=== PATIENT | male | born 1935 | race Caucasian/White ===

== ENCOUNTER 2019-07-19 13:01 | Inpatient (IN) | payer MEDICARE ==
--- NOTE | 2019-07-19 14:46 | PDOC.FPRHP ---
- History of Present Illness Chief Complaint: Chest PainPt i History of Present Illness: Pt is an 83 yo male with pmh significant for DM, HTN, HLD, hx of 3 vessel CABG in [address] Wei who presented to [facility] with chest pain starting at 0300. Pt described it as indigestion not alleviated with maalox. Pt states he has pain radiating down L arm. He denies diaphoresis. This feels the same as his cardiac pain when he had the bypass in 2002. He follows with Dr. Wei but is unsure the last time he had any cardiac workup performed. Pt noted shortness of breath with exertion over a few months. He is a non-smoker. He does not know his full PMH or medications. His is bringing a list. In [place] Dr. Wei was notified who started the pt on therapeutic lovenox. Troponin neg x 1. EKG showed RBBB, mild ST depressions in V4/V5. Pt was given nitro-paste. Of note pt was seen by ENT requiring intervention to alleviate epistaxis. - Allergies/Adverse Reactions Allergies Allergy/AdvReac Type Severity Reaction Status Date / Time No Known Allergies Allergy Unverified 07/19/19 16:40 - Home Medications Medication Instructions Recorded Confirmed Type Allopurinol [Zyloprim] 150 mg PO DAILY 07/19/19 07/19/19 History Amlodipine [Norvasc] 1 tab PO DAILY 07/19/19 07/19/19 History Aspirin [Ecotrin Low Strength] 1 tab PO DAILY 07/19/19 07/19/19 History Pitavastatin Calcium [Livalo] 2 mg PO MWF 07/19/19 07/19/19 History hydrALAZINE HCl [Hydralazine HCl] 50 mg PO TID 07/19/19 07/19/19 History metFORMIN [Glucophage] 1 tab PO DAILY 07/19/19 07/19/19 History - History PMHx: CAD s/p 3v CABG, HTN, HLD, DM2, gout PSHx: CABG, R shoulder, L knee, nasal surgery FHx: non-contributory Social: 1 glass wine/night, no smoking, no drugs - Review of Systems General: denies: fever/chills, weight/appetite/sleep changes, night sweats Eyes: denies: eye pain, vision changes ENT: denies: nasal congestion, rhinorrhea Respiratory: reports: shortness of breath. denies: cough, congestion Cardiovascular: reports: chest pain. denies: palpitation, edema Gastrointestinal: reports: nausea. denies: vomiting, diarrhea, constipation Genitourinary: denies: incontinence, dysuria Skin: denies: rashes, jaundice Musculoskeletal: denies: pain, tenderness Neurological: denies: numbness, syncope, seizure Psychological: denies: anxiety, depression - Vital signs BP: 142/79, MAP: 100, Pulse: 83, Resp: 21, Pain: 8, O2 sat: 99 on (Room Air), Time: 07/19/2019 13:16. weight 72kg - Physical Exam Constitutional: NAD, awake, alert and oriented HEENT: PERRLA, EOMI Neck: trachea midline, no JVD Heart: RRR, pulses present, no edema -Heart: Systolic murmur, 3/6, best heard over R sternal border Lungs: CTAB, no respiratory distress, no wheezing Abdomen: soft, non-tender, bowel sounds present Musculoskeletal: normal structure, normal tone Neurological: no focal deficit, CN II-XII intact Skin: no rash/lesions, capillary refill <2 seconds Heme/Lymphatic: no purpura, no petechia Psychiatric: normal mood and affect, good judgment and insight FMR H&P: Results - Labs Result Diagrams: 07/20/19 04:13 07/20/19 04:13 - EKG Interpretation EKG: EKG revealed NSR, RBBB, ST depression in V4/5 - Radiology Interpretation Chest x-ray Status: report reviewed by me Additional comment: Cardiomegaly, no congestion or overload FMR H&P: A/P - Problem List (1) Hyponatremia Current Visit: Yes Status: Acute Code(s): E87.1 - HYPO-OSMOLALITY AND HYPONATREMIA (2) CAD (coronary artery disease) Current Visit: Yes Status: Acute Code(s): I25.10 - ATHSCL HEART DISEASE OF [place] CORONARY ARTERY W/O ANG PCTRS (3) Unstable angina Current Visit: Yes Status: Acute (4) Hx of CABG Current Visit: Yes Status: Acute (5) HTN (hypertension) Current Visit: Yes Status: Acute Code(s): I10 - ESSENTIAL (PRIMARY) HYPERTENSION (6) Diabetes mellitus Current Visit: Yes Status: Acute Code(s): E11.9 - TYPE 2 DIABETES MELLITUS WITHOUT COMPLICATIONS - Plan Pt is an 83 yo male here for unstable angina: # Unstable Angina - Dr. Wei consulted, appreciate recs; Cath tomorrow, continue therapeutic lovenox - trend trops - Risk stratify: lipid, a1c, tsh - NPO midnight # Hyponatremia - monitor, possibly secondary to dehydration, diet - pending urin sodium, urine and sodium osmolarity # Epistaxis - monitor H/H, potato starch given to alleviate bleeding, consider nose rocket if not alleviated # Normocytic Anemia - monitor, likely secondary to epistaxis, chronic disease, possible malnutrition - pending workup based on 's records # Systolic Murmur - unsure if new onset, consider echo # CKD with possible acute injury - monitor in am, received fluids in ED so will hopefully correct # HTN/HLD/DM - will continue home meds when bring list - hyperglycemia protocol initiated # Pt will need med reconciliation Diet: HH, NPO midnight Fluids: SL VTE: lovenox Code: Full Dispo: admit to tele obs for cath tomorrow with Dr. Wei FMR H&P: Upper Level - Plan Date/Time: 07/19/19 1445 I, Ari Luz PGY2, have evaluated this patient and agree with findings/ plan as outlined by lab intern resident. Pertinent changes/additions are listed here. Chest Pain 2/2 MSK vs. ACS A- Pain concerning for ACS especially considering high risk pt with hx of CAD s/ p CABG. However initial trops .028-->.025, EKG significant for R BBB, CXR shows cardiomegaly. Cardiology (Dr. Wei) has been consulted from ED and given pt dose of lovenox P- admit tele obs -will give ASA -has nitro paste -O2 prn -tend trops -risk stratify with FLP -possible stress test tomorrow -f/u cards recs Nose bleed A- pt had recent cauterization, recieved th lovenox in ED. P- will give rhinorocket and consider ENT consult if not controlled. Otherwise plan for outpt f/u if no resolution. Hyponatremia A- on admission Na 128, pt asymptomatic and stable. Possibly 2/2 being volume down. He is s/p 1L IVF P- will monitor and consider further workup Hx of SOB on exertion A- considering cardiac hx he may have some component of CHF, he cannot remember when his last ECHO was or what it said. [facility] P- f/u with cardiology, he has likely had recent ECHO Systolic murmur A- pt seemingly asymptomatic P- per plan for SOB on exertion Normocytic anemia A- Hgb 9.9 on outside facility. could be chronic, pts is coming up to provide more medical hx P- will hold off on further workup and monitor for now MARK vs. CKD A- unknown baseline, On admission Cr is 1.5. Possibly pt is volume down. He is now s/p 1L IVF from ER P- will monitor and get more medical Hx from . DM2, CAD, HLD, HTN, gout -stable continue home meds (once reconcilled), accuchecs and SSI All other chronic conditions are to be managed per lab intern note Addendum - Attending - Attending Attestation Date/Time: 07/19/19 1600 I personally evaluated the patient and discussed the management with Dr. Rojas /Natty. I agree with the History, Examination, Assessment and Plan documented above with any addition or exceptions noted below.
[2019-07-19] MEDS ORDERED: Ondansetron PF 4 MG/2 ML Vial IVP PRN (16:40)
[2019-07-19] MEDS ORDERED: Ondansetron ODT 4 MG TAB SL PRN (16:40)
[2019-07-19] MEDS ORDERED: HumaLOG 300 UNITS/3 ML VIAL SC PRN (16:53)
[2019-07-19] MEDS ORDERED: Dextrose 5% in Water 1,000 ML IV PRN (16:53)
[2019-07-19] MEDS ORDERED: Insulin Regular 300 UNITS/3 ML VIAL SC PRN (16:53)
[2019-07-19] MEDS ORDERED: Dextrose 50% Abboject 50 ML SYRINGE SLOW IVP PRN (16:53)
[2019-07-19 17:34] LABS: Hemoglobin A1c 5.5 % (4.0-6.0)
[2019-07-19 17:47] VITALS: BMI 25.8
[2019-07-19] MEDS ORDERED: Aspirin 81 mg Enteric Coated Tablet PO SCH (18:00)
[2019-07-19] MEDS ORDERED: Communication Order-Pharmacy FS SCH (18:30)
--- NOTE | 2019-07-19 19:37 | PDOC.EVN ---
Event Note - Event Note Event Note: At approximately 1900, the Resident Night Team was notified that the patient was having ongoing epistaxis from both nares that did not respond adequately to position changes or applied pressure. Upon evaluation, the patient appeared to be in no acute distress other than continual oozing from the right nare and occasional hemoptysis, likely secondary to postnasal drainage. Vital signs were reviewed and hemodynamic compromise did not appear imminent. A large clot was removed from the right nare, and a Rhino Rocket was subsequently inserted and inflated to achieve tamponade effect. Insertion of a second Rhino Rocket was attempted but could not completed due to poor patient tolerance. No continuous bleeding could be appreciated. A fresh emesis bag was provided and the patient was allowed to recover for approximately 30M. Upon reinspection, the patient's epistaxis appeared to be minimal, but minimal yet ongoing hemoptysis and collected blood in the fresh emesis bag indicated that appropriate tamponade effect had not yet been achieved. As such, a second Rhino Rocket was inserted into the patient's left nare and gradually inflated. The patient tolerated the procedure well and no complications were evident.
--- NOTE | 2019-07-19 19:59 | CON ---
DATE OF CONSULTATION: 07/19/2019 REASON FOR CONSULTATION: Unstable angina. HISTORY OF PRESENT ILLNESS: Mr. Blood is an 83-year-old gentleman. The patient has a history of coronary artery bypass grafting done many years ago, that will be outlined below. He also has previously known mild aortic stenosis. The patient was doing well up until this morning. He started having severe substernal chest pain. He went to the emergency room. EKG continued to show right bundle-branch block as before. He was given a dose of Lovenox. The patient had resolution of chest pain, but unfortunately he has developed nosebleeds. The patient states that about 2 weeks ago he had to go off the aspirin for 3 to 4 days due to severe nose bleeding. He had a vessel cauterized, but he said he is only off the aspirin he has had 3 to 4 days. Unfortunately, he is having severe recurrent nosebleeds now. PAST MEDICAL HISTORY: The patient presented with severe chest pain in March 2002, 17 years ago. He found to have severe LAD diagonal disease with a 95% LAD stenosis with calcium, 99% stenosis in first marginal branch, 10% to 15% plaques in the right coronary artery, ejection fraction of 60%. The patient underwent bypass surgery by With internal mammary to the LAD, saphenous vein graft to the obtuse marginal, left radial artery to the diagonal. He did well postoperatively. The patient has been seen in our office most recently in September of 2018, doing well at that time. The patient did have an echocardiogram done in 2018 showing only mild aortic stenosis. The dated of an echocardiogram I believe was in March 2017. The patient on admission has been doing well up until recently. MEDICATIONS: 1. Aspirin. He said he just started back on it yesterday, that is what he told the emergency room doctor, but he tells me that he is only off it for few days, so it is not really clear how long he is off the aspirin. 2. Metformin. 3. Amlodipine. 4. Livalo. 5. Hydralazine. 6. Allopurinol. SOCIAL HISTORY: No alcohol or tobacco. REVIEW OF SYSTEMS: CONSTITUTIONAL: No significant weight gain or loss. VISION: No changes. HEARING: No changes. PULMONARY: Some shortness of breath. CARDIAC: Positive for chest pain, substernal. SKIN: No rashes. NEUROLOGIC: No unilateral weakness or numbness. PSYCHIATRIC: No unusual depression or anxiety. PHYSICAL EXAMINATION: GENERAL: This is a somewhat uncomfortable-appearing 83-year-old gentleman, who is continuing to have nosebleeds. He is currently pinching his nostril to try to reduce the nose bleeding. VITAL SIGNS: Blood pressure 132/88 and pulse 94, regular. LUNGS: Clear. CARDIAC: Normal S1. Normal S2. There is a 3/6 crescendo-decrescendo murmur heard in the right upper sternal border and also left sternal border. No diastolic murmur. No S3. ABDOMEN: Soft and nontender. EXTREMITIES: No clubbing, cyanosis, or edema. He has good femoral pulse on the left and palpable in the right. Good popliteal on the left, palpable on the right. LABORATORY DATA: Troponin level 0.03. Hemoglobin was mildly diminished in [place]. Creatinine is 1.5. The estimated GFR is 44. IMAGING STUDIES: EKG shows right bundle-branch block as before. ASSESSMENT: 1. Status post bypass surgery in 2002 x3 as outlined above. 2. Right bundle-branch block, chronic. 3. Aortic stenosis. The murmur sounds more severe now. 4. Continued nosebleeds unfortunately. 5. Stage 3 renal failure. PLAN: 1. Received one dose of Lovenox. Cannot give further Lovenox with nose bleeding. 2. I would like to repeat echocardiogram. 3. Proceed the cardiac catheterization tomorrow. Discussed risk of stroke, heart attack, iodine allergy, loss of blood supply to leg or kidney, stent thrombosis, stent restenosis. This is obviously is a difficult situation. If we have put a stent, we have to use dual anti-platelet drugs for least a month and reoperative therapy at age 83 is certainly high risk. Prognosis is guarded in this gentleman. Further care dictated by hospital course. 4. Stage 3 renal failure and right bundle-branch block. We will not do left ventriculogram in view of the right bundle-branch block. Job ID: [id number] [facility]
[2019-07-19 20:21] LABS: Troponin I 0.022 ng/mL (< 0.028)
[2019-07-19] MEDS ORDERED: hydrALAZINE 25 MG TAB PO SCH (21:00)
[2019-07-19 22:19] LABS: Hemoglobin 8.8 g/dL (14.0-18.0)
[2019-07-19] MEDS: Nitroglycerin 2% Ointment 1 INCH/1 GM Packet TOP SCH (23:08)
[2019-07-19] MEDS: hydrALAZINE 25 MG TAB PO SCH (23:08)
[2019-07-20] MEDS: Nitroglycerin 2% Ointment 1 INCH/1 GM Packet TOP SCH ×3 (02:12→17:07)
[2019-07-20 04:42] LABS: #Lymphocytes 0.9 thou/uL (1.20-3.40); #Monocytes 1.1 thou/uL (0.11-0.59); #Neutrophils 7.4 thou/uL (1.40-6.50); %Eosinophils 0.3 % (0.0-10.0); %Lymphocytes 9.1 % (21.0-51.0); %Monocytes 11.7 % (0.0-10.0); %Neutrophils 78.8 % (42.0-75.0); Hemoglobin 7.5 g/dL (14.0-18.0); Mean Corpuscular HGB CONC 32.3 g/dL (32.0-36.0); Mean Corpuscular Hemoglobin 28.6 pg (27.0-31.0); Mean Corpuscular Volume 88.4 fL (78.0-98.0); Mean Platelet Volume 6.5 fL (7.4-10.4); Platelet Count 282 thou/uL (130-400); RBC Distribution Width 13.7 % (11.5-14.5); Red Blood Cell (RBC) Count 2.63 mill/uL (4.70-6.10); White Blood Cell (WBC) Count 9.4 thou/uL (4.8-10.8)
[2019-07-20 05:03] LABS: Anion Gap 13 mmol/L (10-20); BUN (Urea Nitrogen) 35 mg/dL (8.4-25.7); Calc. Creatinine Clearance 33 mL/min (70-130); Calcium 8.5 mg/dL (7.8-10.44); Carbon Dioxide 24 mmol/L (23-31); Cardiac Risk 1.9 (Less than 4.5); Chloride 97 mmol/L (98-107); Cholesterol 110 mg/dl (< 200 Desired); Estimated GFR-MDRD 39; Glucose 111 mg/dL (83-110); HDL Cholesterol 57 mg/dL (>60 Neg Risk); LDL Cholesterol, Calculated 45 mg/dL; Potassium 4.3 mmol/L (3.5-5.1); Sodium 130 mmol/L (136-145); Triglycerides 42 mg/dL (Less than 150)
[2019-07-20] MEDS ORDERED: Sodium Chloride 0.9% 1,000 ML IV SCH (06:00)
[2019-07-20] MEDS: hydrALAZINE 25 MG TAB PO SCH ×3 (07:35→20:03)
[2019-07-20] MEDS: Amlodipine 10 MG TAB PO SCH (07:35)
[2019-07-20] MEDS: Aspirin 81 mg Enteric Coated Tablet PO SCH (07:35)
--- NOTE | 2019-07-20 07:56 | RAD ---
PORTABLE CHEST HISTORY: CHF. COMPARISON: Exam from 2002. Cardiomegaly with postop sternotomy change. Poor inspiration; however, the lungs appear well aerated and clear. No significant vascular congestion. No evidence of edema. No significant effusion. IMPRESSION: Cardiomegaly. No evidence of significant congestive change. POS: AGW
--- NOTE | 2019-07-20 08:16 | PDOC.FM ---
- Subjective Subjective: Pt doing well, no more nosebleeding since rhinorocket placement, no cp , no palpitations. - Objective Vital Signs & Weight: Vital Signs (12 hours) Temp Pulse Resp BP Pulse Ox 07/20/19 07:08 97.7 F 77 16 184/84 H 94 L 07/20/19 03:47 98.8 F 84 18 162/77 H 95 07/19/19 23:58 97.9 F 86 18 152/75 H 94 L Weight Weight 72.631 kg I&O: 07/19/19 07/20/19 07/21/19 06:59 06:59 06:59 Intake Total 490 Balance 490 Result Diagrams: 07/20/19 04:13 07/20/19 04:13 Phys Exam - Physical Examination Constitutional: NAD HEENT: moist MMs, sclera anicteric Neck: supple, full ROM Respiratory: no wheezing, clear to auscultation bilateral Cardiovascular: RRR systolic murmur Gastrointestinal: soft, non-tender Musculoskeletal: no edema, pulses present Neurological: non-focal, normal sensation Psychiatric: normal affect, A&O x 3 Skin: no rash, normal turgor Dx/Plan (1) Unstable angina Status: Acute (2) CAD (coronary artery disease) Code(s): I25.10 - ATHSCL HEART DISEASE OF [place] CORONARY ARTERY W/O ANG PCTRS Status: Acute (3) Diabetes mellitus Code(s): E11.9 - TYPE 2 DIABETES MELLITUS WITHOUT COMPLICATIONS Status: Acute (4) HTN (hypertension) Code(s): I10 - ESSENTIAL (PRIMARY) HYPERTENSION Status: Acute (5) Hx of CABG Status: Acute (6) Hyponatremia Code(s): E87.1 - HYPO-OSMOLALITY AND HYPONATREMIA Status: Acute - Plan Plan: Unstable Angina A- stable, pt currently asymptomatic. trops .028-->.022, EKG significant for R BBB, CXR shows cardiomegaly. Cardiology (Dr. Wei) has been consulted from ED and given pt dose of lovenox. Plans for cath this AM. P- cath this AM -ASA -f/u cards recs Epistaxis A- stable, pt has bilateral rhinorockets placed 07/18, has hx of cauterization by ENT. P- will consider pulling her vs. outpt Hyponatremia A- on admission Na 128-> 130 after 1L NS. Urine studies suggest renal losses vs. SIADH depending on pts volume status. I suspect hypovolemic hyponatremia P- will monitor and consider further workup Hx of SOB on exertion A- considering cardiac hx he may have some component of CHF, he cannot remember when his last ECHO was or what it said. BNP at [facility] facility was in 160s P- f/u with cardiology, he has likely had recent ECHO Systolic murmur A- pt seemingly asymptomatic P- per plan for SOB on exertion Normocytic anemia A- Hgb 9.9 on outside facility. could be chronic, pts is coming up to provide more medical hx P- will hold off on further workup and monitor for now MARK vs. CKD A- unknown baseline, On admission Cr is 1.5. Possibly pt is volume down. He is now s/p 1L IVF from ER P- will monitor and get more medical Hx from . DM2, CAD, HLD, HTN, gout -stable continue home meds, accuchecs and SSI CODE: full Addendum - Attending - Attending Attestation Date/Time: 07/20/19 3865 I personally evaluated the patient and discussed the management with Dr. Luz. I agree with the History, Examination, Assessment and Plan documented above with any addition or exceptions noted below. Patient stable. Here for concern for ACS, cardiology plans for cath tomorrow. Can't use full anticoagulation at this time due to severe epistaxis. Rhino rockets in place, consulted ENT for assistance. Continue standard ACS treatment.
[2019-07-20] MEDS ORDERED: Aspirin 81 mg Enteric Coated Tablet PO SCH (09:00)
[2019-07-20] MEDS ORDERED: metFORMIN 500 MG TAB PO SCH ×2 (09:00)
--- NOTE | 2019-07-20 10:03 | PRG ---
DATE OF SERVICE: 07/20/2019 SUBJECTIVE: Mr. Blood had a difficult evening last night with severe nose bleeding. Please see the family practice note concerning the situation where he had to have the Rhino Rocket placed in each nostril but he had a lot of bleeding and even had some hemoptysis due to the nosebleeds. He is feeling better today. He is not having chest pain fortunately. OBJECTIVE: VITAL SIGNS: His blood pressure is elevated at 184/84, pulse 77 and is regular. LUNGS: He has some expiratory wheezing. CARDIAC: Normal S1, normal S2. He has a crescendo-decrescendo murmur of aortic stenosis. ABDOMEN: Soft, nontender. EXTREMITIES: Palpable femoral pulses bilaterally. I do not feel pedal pulses on either side indicating his peripheral vascular disease. LABORATORY DATA: Of note, his creatinine did increase from 1.5 to 1.68. In addition, his hemoglobin dropped from 32.6 in [place] down to 23.2. Echocardiogram revealed normal left ventricular function, but he has moderate to severe aortic stenosis. ASSESSMENT: 1. Previous coronary artery bypass grafting for severe coronary artery disease as outlined previously that was done in 2002. Internal mammary to the LAD, vein graft to obtuse marginal, left radial to the diagonal. 2. Aortic stenosis, moderate to severe. 3. Renal failure stage 3. 4. Mild expiratory wheezing, probably some diastolic heart failure. 5. Anemia, severe. Hemoglobin dropped to 23.2. PLAN: 1. Cancel catheterization for today especially in view of continued nose bleeding. If he needs a stent, we will have to give him dual anti-platelet therapy and anticoagulate for at least a few hours during or after the procedure. 2. He has peripheral vascular disease, which increases risk. 3. Renal failure, increases rest. 4. Anemia. 5. Aortic stenosis. In other words, the patient is high risk regardless of our therapy. We will try to proceed cautiously, cancel catheterization for today. We will recheck the blood counts this afternoon. Tentatively plan for catheterization tomorrow. He understands risk of bleeding, infection, stent thrombosis, stent restenosis, renal failure. The patient is high risk regardless of therapy. We will proceed tomorrow if the patient is stable. Prognosis, guarded. We will also discuss this with his over the phone. Due to the COVID crisis, family members are not currently allowed in the room. Job ID: [id number]
[2019-07-20] MEDS: Allopurinol 300 MG TAB PO SCH (10:06)
--- NOTE | 2019-07-20 15:38 | CON ---
DATE OF CONSULTATION: CHIEF COMPLAINT: Significant epistaxis requiring nasal packing. HISTORY OF PRESENT ILLNESS: An 83-year-old male patient presenting to the hospital, status post admission, the patient had epistaxis via bilateral nares, which was significant. The patient also has a significant cardiac history including aortic stenosis, previous coronary artery bypass grafting for severe coronary artery disease that was previously done in 2002, and renal failure stage 3 with mild expiratory wheezing, likely due to diastolic heart failure and anemia. Currently, the patient's hemoglobin is 7.5. The patient has been taking aspirin at home and also has elevated blood pressure. PAST MEDICAL HISTORY: Aortic stenosis, coronary artery disease, renal failure, anemia, and hypertension. PAST SURGICAL HISTORY: Previous coronary artery bypass grafting in 2002. No other previous head and neck surgeries. SOCIAL AND FAMILY HISTORY: Lives at home. No known drug or alcohol use. Currently, not a smoker. Lives with . REVIEW OF SYSTEMS: Negative except as listed in HPI. PHYSICAL EXAMINATION: GENERAL: The patient is alert and oriented x3. HEAD AND FACE: Normocephalic, atraumatic. No skin or scalp lesions. No parotid gland or maxillary gland tenderness. EYES: Pupils are equally round and reactive to light. Extraocular movements are intact. No nystagmus on lateral gaze. EARS: Bilateral pinnae are intact with no trauma, bleeding, or infection. The EACs are clear. There is no impacted wax or drainage and no inflammation. NOSE: Bilateral nares are packed with epistaxis with a soft air-filled balloon on the side bilaterally that are taped to the maxillary soft tissue. ORAL CAVITY AND OROPHARYNX: Teeth, lips, and tongue are intact without signs of infection or inflammation. Tongue is mobile and soft. Floor of mouth is soft. The palate elevates symmetrically without significant signs of edema or erythema. NECK: Trachea is midline. No lymphadenopathy. Thyroid is normal to palpation. No masses or lesions. LUNGS: Symmetrical chest excursion and no significant wheezing or upper airway or lower airway sounds. ASSESSMENT AND PLAN: An 83-year-old male patient with coronary artery disease and currently unstable angina. I have discussed with Dr. Wei. The patient will likely need to have a catheterization and likely a stent placed in the future, which would require anticoagulation and antiplatelet treatment and given previous cardiac risk, we will likely need to stay on that anticoagulation for some time. The patient also is significantly anemic and has a history of anemia as well. Currently, hemoglobin is 7.5, and as the patient recently had a significant nosebleed, and nasal packing was just placed, I would recommend waiting at least 5 days until packing was removed in order to allow the mucosa and blood vessels in the nasal cavity to heal and to form a mature clot and start to re-mucosalize before removing. Given that the packing would be in place, I would recommend patient take amoxicillin while the packing is in place to provide gram-positive coverage and to prevent sinus infection or possibly staphylococcal scalded skin syndrome, and the patient can follow up in my clinic. The patient can have packing removed by myself in clinic and the telephone number for patient to make an appointment is #[phone]. Job ID: [id number]
[2019-07-20] MEDS: Atorvastatin Calcium 40 MG TAB PO SCH (20:03)
[2019-07-21] MEDS: Nitroglycerin 2% Ointment 1 INCH/1 GM Packet TOP SCH ×2 (03:02→10:26)
[2019-07-21 04:19] LABS: #Eosinphils 0.2 thou/uL (0.0-0.7); #Monocytes 0.9 thou/uL (0.11-0.59); #Neutrophils 7.6 thou/uL (1.40-6.50); %Basophils 0.1 % (0.0-1.0); %Eosinophils 1.8 % (0.0-10.0); %Lymphocytes 10.4 % (21.0-51.0); %Monocytes 8.8 % (0.0-10.0); %Neutrophils 78.8 % (42.0-75.0); Hemoglobin 7.2 g/dL (14.0-18.0); Mean Corpuscular HGB CONC 31.5 g/dL (32.0-36.0); Mean Corpuscular Hemoglobin 27.6 pg (27.0-31.0); Mean Corpuscular Volume 87.8 fL (78.0-98.0); Platelet Count 262 thou/uL (130-400); RBC Distribution Width 13.5 % (11.5-14.5); White Blood Cell (WBC) Count 9.7 thou/uL (4.8-10.8)
[2019-07-21 04:49] LABS: Anion Gap 12 mmol/L (10-20); BUN (Urea Nitrogen) 33 mg/dL (8.4-25.7); Calc. Creatinine Clearance 39 mL/min (70-130); Calcium 8.6 mg/dL (7.8-10.44); Carbon Dioxide 23 mmol/L (23-31); Chloride 98 mmol/L (98-107); Estimated GFR-MDRD 47; Glucose 111 mg/dL (83-110); Potassium 3.7 mmol/L (3.5-5.1); Sodium 129 mmol/L (136-145)
[2019-07-21] MEDS: Amlodipine 10 MG TAB PO SCH (05:28)
[2019-07-21] MEDS: hydrALAZINE 25 MG TAB PO SCH ×3 (05:28→21:00)
[2019-07-21] MEDS: Aspirin 81 mg Enteric Coated Tablet PO SCH (05:28)
[2019-07-21] MEDS: Allopurinol 300 MG TAB PO SCH (05:28)
[2019-07-21] MEDS ORDERED: Sodium Chloride 0.9% 1,000 ML IV SCH (06:00)
--- NOTE | 2019-07-21 07:54 | PDOC.FM ---
- Subjective Subjective: Doing well, no complaints. no cp, no sob, no nose bleeding. - Objective Vital Signs & Weight: Vital Signs (12 hours) Temp Pulse Resp BP BP Pulse Ox 07/21/19 07:07 98.7 F 87 16 150/75 H 93 L 07/21/19 03:17 99.2 F 89 18 175/84 H 93 L Weight Weight 73.482 kg I&O: 07/20/19 07/21/19 07/22/19 06:59 06:59 06:59 Intake Total 490 970 Output Total 1390 Balance 490 -420 Result Diagrams: 07/21/19 04:07 07/21/19 04:07 Phys Exam - Physical Examination Constitutional: NAD HEENT: moist MMs, sclera anicteric Neck: supple, full ROM Respiratory: no wheezing, clear to auscultation bilateral systolic murmur, regular rhythm Gastrointestinal: soft, non-tender Musculoskeletal: no edema, pulses present Neurological: non-focal, normal sensation Psychiatric: normal affect Skin: no rash, normal turgor Dx/Plan (1) CAD (coronary artery disease) Code(s): I25.10 - ATHSCL HEART DISEASE OF [place] CORONARY ARTERY W/O ANG PCTRS Status: Acute (2) Diabetes mellitus Code(s): E11.9 - TYPE 2 DIABETES MELLITUS WITHOUT COMPLICATIONS Status: Acute (3) HTN (hypertension) Code(s): I10 - ESSENTIAL (PRIMARY) HYPERTENSION Status: Acute (4) Hx of CABG Status: Acute (5) Hyponatremia Code(s): E87.1 - HYPO-OSMOLALITY AND HYPONATREMIA Status: Acute (6) Chest pain Code(s): R07.9 - CHEST PAIN, UNSPECIFIED Status: Acute - Plan Plan: Chest pain 2/2 GI vs. CAD A- stable, pt currently asymptomatic. trops .028-->.022, EKG significant for R BBB, CXR shows cardiomegaly. Cardiology (Dr. Wei) has been consulted from ED and given pt dose of lovenox. Plans for cath this AM. P- cath this AM -ASA -f/u cards recs Epistaxis A- stable, pt has bilateral rhinorockets placed 07/18, has hx of cauterization by ENT. ENT consulted appreciate recs P- plan for oupt f/u with ENT to be pulled -will start ppx amoxicillin Hyponatremia A- stable and asymptomatic. Urine studies suggest renal losses vs. SIADH depending on pts volume status. I suspect hypovolemic hyponatremia P- will monitor and consider further workup Aortic stenosis A- echo 07/18 shows moderate to severe stenosis, normal EF P- f/u cards recs, pt going for cath Normocytic anemia A- Hgb 9.9 on outside facility likely 2/2 severe epistaxis. P- plan per epistaxis, monitor h/h MARK vs. CKD A- unknown baseline, On admission Cr is 1.5 which has improved. I suspect CKD hx considering home statin is renally dosed P- will monitor, f/u outpt DM2, CAD, HLD, HTN, gout -stable continue home meds, accuchecs and SSI -hold metformin until DC from hospital to avoid contrast induced nephropathy CODE: full Addendum - Attending - Attending Attestation Date/Time: 07/21/19 2831 I personally evaluated the patient and discussed the management with Dr. Luz. I agree with the History, Examination, Assessment and Plan documented above with any addition or exceptions noted below. Epistaxis improved, ENT on board and has outpatient plan. Patient going for heart cath today, further mgmt pending that result. Cardiology on board.
[2019-07-21] MEDS ORDERED: Nitroglycerin 100MG/250ML BOT 0 ML ONE (08:45)
[2019-07-21] MEDS ORDERED: Atorvastatin Calcium 10 MG TAB PO SCH (09:00)
[2019-07-21] MEDS ORDERED: Acetaminophen/Codeine 30-300mg Tablet PO PRN ×2 (12:10→12:16)
[2019-07-21] MEDS ORDERED: Nitroglycerin 0.4 MG TAB (25 Tab Bottle) SL PRN (12:10)
[2019-07-21] MEDS ORDERED: Sodium Chloride 0.9% 200 ML IV PRN (12:10)
[2019-07-21] MEDS ORDERED: Furosemide 20 MG/2 ML VIAL SLOW IVP SCH (14:00)
--- NOTE | 2019-07-21 15:10 | PRG ---
DATE OF SERVICE: 07/21/2019 SUBJECTIVE: Mr. Blood underwent cardiac catheterization today, revealed that he has patent internal mammary to LAD, patent vein graft to obtuse marginal, patent radial to diagonal branch, 30% to 40% main circumflex disease, right coronary 30% plaque, no left ventriculogram, he has [id number] aortic stenosis, and right bundle-branch block. ASSESSMENT: 1. The patient is adequately vascularized. 2. Hypertension. 3. Renal insufficiency. 4. Anemia, mostly due to severe nose bleeding. PLAN: 1. He will receive intravenous iron today and tomorrow. 2. He should be able to go home on the same medicines he came in on with the addition of nitroglycerin if needed and isosorbide, to be released home tomorrow morning. Job ID: [id number]
[2019-07-21] MEDS: Iron, Sodium Ferric Gluconate 250 MG in Sodium Chloride 0.9% 100 ML IVPB SCH (16:24)
[2019-07-21] MEDS: AMOXicillin 250 MG CAP PO SCH (21:00)
[2019-07-21] MEDS: Atorvastatin Calcium 40 MG TAB PO SCH (21:00)
[2019-07-22 04:42] LABS: #Eosinphils 0.4 thou/uL (0.0-0.7); #Monocytes 0.8 thou/uL (0.11-0.59); #Neutrophils 6.7 thou/uL (1.40-6.50); %Basophils 0.2 % (0.0-1.0); %Eosinophils 4.3 % (0.0-10.0); %Lymphocytes 11.3 % (21.0-51.0); %Monocytes 9.1 % (0.0-10.0); Hemoglobin 7.5 g/dL (14.0-18.0); Mean Corpuscular Hemoglobin 29.4 pg (27.0-31.0); Mean Corpuscular Volume 86.6 fL (78.0-98.0); Mean Platelet Volume 6.7 fL (7.4-10.4); Platelet Count 300 thou/uL (130-400); RBC Distribution Width 13.3 % (11.5-14.5); Red Blood Cell (RBC) Count 2.54 mill/uL (4.70-6.10); White Blood Cell (WBC) Count 8.9 thou/uL (4.8-10.8)
[2019-07-22 05:03] LABS: Anion Gap 14 mmol/L (10-20); BUN (Urea Nitrogen) 28 mg/dL (8.4-25.7); Calc. Creatinine Clearance 42 mL/min (70-130); Calcium 8.6 mg/dL (7.8-10.44); Carbon Dioxide 22 mmol/L (23-31); Chloride 99 mmol/L (98-107); Estimated GFR-MDRD 50; Glucose 92 mg/dL (83-110); Potassium 3.8 mmol/L (3.5-5.1); Sodium 131 mmol/L (136-145)
[2019-07-22] MEDS: Iron, Sodium Ferric Gluconate 250 MG in Sodium Chloride 0.9% 100 ML IVPB SCH (06:16)
[2019-07-22] MEDS: hydrALAZINE 25 MG TAB PO SCH (08:04)
[2019-07-22] MEDS: AMOXicillin 250 MG CAP PO SCH (08:04)
[2019-07-22] MEDS: Amlodipine 10 MG TAB PO SCH (08:04)
[2019-07-22] MEDS: Allopurinol 300 MG TAB PO SCH (08:05)
[2019-07-22] MEDS: Aspirin 81 mg Enteric Coated Tablet PO SCH (08:05)
--- NOTE | 2019-07-22 08:37 | PDOC.FM ---
- Subjective Subjective: Pt reports feeling well with no complaints, no CP no sob, no palpitations. - Objective Vital Signs & Weight: Vital Signs (12 hours) Temp Pulse Resp BP BP Pulse Ox 07/22/19 07:33 98.2 F 116 H 18 120/73 99 07/22/19 04:00 98.7 F 81 20 140/70 96 07/21/19 21:00 74 163/79 H Weight Weight 73.119 kg I&O: 07/21/19 07/22/19 07/23/19 06:59 06:59 06:59 Intake Total 970 580 Output Total 1390 1570 Balance -420 -990 Result Diagrams: 07/22/19 04:09 07/22/19 04:09 Phys Exam - Physical Examination Constitutional: NAD HEENT: moist MMs, sclera anicteric Neck: supple, full ROM Respiratory: no wheezing, clear to auscultation bilateral Cardiovascular: RRR, no significant murmur Gastrointestinal: soft, non-tender Musculoskeletal: pulses present Neurological: normal sensation, moves all 4 limbs Psychiatric: normal affect, A&O x 3 Skin: no rash, normal turgor Dx/Plan (1) CAD (coronary artery disease) Code(s): I25.10 - ATHSCL HEART DISEASE OF [place] CORONARY ARTERY W/O ANG PCTRS Status: Acute (2) Diabetes mellitus Code(s): E11.9 - TYPE 2 DIABETES MELLITUS WITHOUT COMPLICATIONS Status: Acute (3) HTN (hypertension) Code(s): I10 - ESSENTIAL (PRIMARY) HYPERTENSION Status: Acute (4) Hx of CABG Status: Acute (5) Hyponatremia Code(s): E87.1 - HYPO-OSMOLALITY AND HYPONATREMIA Status: Acute (6) Chest pain Code(s): R07.9 - CHEST PAIN, UNSPECIFIED Status: Acute - Plan Plan: Chest pain 2/2 GI vs. CAD A- stable, pt currently asymptomatic. Cath showed no obstructive pathology. trops .028-->.022, EKG significant for R BBB, CXR shows cardiomegaly. Cardiology (Dr. Wei) has been consulted. P- plan for DC this morning with current meds (isosorbid mononitrate, and nitro prn added yesterday) Epistaxis A- stable, pt has bilateral rhinorockets placed 07/18, has hx of cauterization by ENT. ENT consulted appreciate recs P- plan for oupt f/u with ENT to be pulled -ppx amoxicillin Hyponatremia A- stable and asymptomatic. Urine studies suggest renal losses vs. SIADH depending on pts volume status. I suspect hypovolemic hyponatremia P- will monitor and consider further workup outpt Aortic stenosis A- echo 07/18 shows moderate to severe stenosis, normal EF P- f/u cards recs outpt Normocytic anemia A- Hgb 9.9 on outside facility likely 2/2 severe epistaxis. Stable since rhinorockets placed. Pt s/p 2 iron infusions. P- f/u monitoring outpt MARK vs. CKD A- unknown baseline, On admission Cr is 1.5 which has improved. I suspect CKD hx considering home statin is renally dosed P- will monitor, f/u outpt DM2, CAD, HLD, HTN, gout -stable continue home meds, accuchecs and SSI -hold metformin until DC from hospital to avoid contrast induced nephropathy CODE: full Addendum - Attending - Attending Attestation Date/Time: 07/22/19 1101 I personally evaluated the patient and discussed the management with Dr. Luz. I agree with the History, Examination, Assessment and Plan documented above with any addition or exceptions noted below. Patient doing well. Stable for discharge.
[2019-07-22 12:01] VITALS: BP 106/57; TEMP 98
--- NOTE | 2019-07-24 02:16 | DIS ---
DATE OF ADMISSION: 07/19/2019 DATE OF DISCHARGE: 07/22/2019 RESIDENT: Ari Luz MD. I personally saw the patient for a total of 3 days. CONSULTS: 1. Cardiology, Dr. Wei. 2. Dr. Torres, ENT. PROCEDURES: 1. Chest x-ray on 07/19/2019. Impression: Cardiomegaly. No evidence of significant congestive change. 2. On 07/20/2019, echocardiogram: Impression: Ejection fraction visually estimated to be 60% to 65%. Moderate concentric left ventricular hypertrophy, left atrium is moderately to severely dilated. Aortic valve leaflets calcified to reduce mobility. Moderate to severe aortic valve stenosis with peak gradient 52 mmHg, mean gradient 30 mmHg. Aortic valve area is 1.1 sq cm. No aortic valve insufficiency, moderate annular calcification. No evidence of mitral valve stenosis. No evidence of mitral regurgitation. 3. Rhino Rocket placement on 07/19/2019. DISCHARGE MEDICATIONS: 1. Amlodipine 10 mg p.o. daily. 2. Aspirin 81 mg p.o. daily. 3. Pitavastatin 2 mg p.o. Wednesday, Wednesday, Wednesday. 4. Allopurinol 150 mg p.o. daily. 5. Hydralazine 50 mg p.o. t.i.d. 6. Metformin 500 mg p.o. daily. 7. Amoxicillin 500 mg p.o. b.i.d. 8. Isosorbide mononitrate 30 mg p.o. daily. 9. Nitroglycerin 0.4 mg sublingual q.5 minutes p.r.n. DISCONTINUED MEDICATIONS: None. PRIMARY DIAGNOSIS: Chest pain secondary to GI versus musculoskeletal pain. SECONDARY DIAGNOSES: Epistaxis, hyponatremia, aortic stenosis, normocytic anemia, , type 2 diabetes, coronary artery disease, hyperlipidemia, hypertension, gout. HISTORY OF PRESENT ILLNESS/HOSPITAL COURSE: This is an 83-year-old male who presented to the ER with complaint of chest pain. The patient was having pain that was actually near the epigastric area versus chest, so was admitted for ACS rule out. The patient had a history of 3-vessel CABG and coronary artery disease and so was significant. Troponins were overall unremarkable as they trended from 0.028 to 0.022. EKG was only significant for right bundle branch block. Chest x-ray showed cardiomegaly. Cardiology was consulted. He got a repeat echocardiogram, which was significant for moderate to severe aortic stenosis. Cardiology added on isosorbide mononitrate and p.r.n. nitroglycerin sublingual and recommended for outpatient followup for his cardiac issues. Of note, the patient also had significant epistaxis and showed a decrease in hemoglobin from his epistaxis from 8.8 on admission to 7.5 on discharge. ENT was consulted, who placed bilateral Rhino Rockets, to be pulled 5 days later, and was recommended to be placed on prophylactic amoxicillin to guard against staph. Otherwise, hospital stay was just significant for hyponatremia, which was stable and asymptomatic; chronic kidney disease, which was found down to be baseline, but thought that he had chronic kidney disease based on his renal dosing of his . Other chronic conditions were controlled with home medications. DISPOSITION: Stable. DISCHARGE INSTRUCTIONS: 1. Location: Home. 2. Activity: As tolerated. 3. Followup: Follow up with [facility] Conner in 7 days, Dr. Pascual Torres and Dr. Vivienne Wei in 2 to 3 weeks. Job ID: [id number]
--- NOTE | 2019-07-24 05:32 | PQF ---
SHERI CURRY JASON MD [id number] [id number] CLINICAL DOCUMENTATION CLARIFICATION FORM: POST DISCHARGE Addendum to original discharge summary date: ____ Late entry note date: __ DATE:07/24/2019 ATTN: Wilfredo Patiño Please exercise your independent, professional judgment in responding to the clarification form. Clinical indicators are provided on the bottom of this form for your review Please check appropriate box(s): DIASTOLIC HEART FAILURE: ACUITY [ ] Acute [ X ] Acute on Chronic [ ] Chronic [ ] Other diagnosis [ ] Unable to determine In addition, please specify: Present on Admission (POA): X[X ] Yes [ ] No [ ] Unable to determine For continuity of documentation, please document condition throughout progress notes and discharge summary. Thank You. CLINICAL INDICATORS - SIGNS / SYMPTOMS / LABS EKG showed RBBB, mild ST depression in V4-V5 Vital signs 07/18 BP 142/79, Pulse 83, Resp 21, Pain 8 H&P p1 07/18 Dr Rojas Presented with Chest pain starting 0300. Pt described it as indigestion not alleviated with maalox. Pt states he has pain radiating down L arm H&P p4 07/18 Dr Rojas Unstable angina H&P p5 07/18 Dr Rojas Hx of SOB on exertion, considering cardiac hx he may have component of CHF, he cannot remember when his last ECHO H&P p5 07/18 Dr Rojas BNP outside facility was in 160s TTE 07/19 Impression: EF is visually estimated 60-65% Consult p1 07/19 Dr Torres Mild expiratory wheezing, likely due to diastolic heart failure and anemia Chest Xray p1 07/19 Cardiomegaly Chest Xray p1 07/19 No significant vascular congestion.No evidence of edema.No significant effusion RISKS: H&P p1 07/18 83 year-p;d Male H&P p1 07/18 HTN H&P p1 07/18 DM H&P p1 07/18 HLD H&P p1 07/18 CAD s/p CABG H&P p4 07/18 - CKD Consult p1 07/19 Aortic stenosis TREATMENTS: May 23 Nitroglycerin 2%ointment MAY 23 Aspirin 81 mg oral MAY 23 Lipitor 40mg oral MAY 24 IV lasix 20 mg MAY 24 IV Nitroglycerin 100mg/250 ml Left heart Catheterization 07/20 Dr Vivienne Wei Chest X-ray 07/18 Cardiology Consult 07/18 Vivienne Salomon TTE 07/19 Dr Vivienne Wei EKG 07/18MAY 24 Furosemide 20mg IV (This form is maintained as a part of the permanent medical record) 2014 [email or web address], [employer]. All Rights Reserved [email or web address]
== END 2019-07-22 13:20 | disposition home or self-care (01) | DRG 287 ==
LOC: ERS 13:01 → INTOOBSV 16:56 → 2NO 16:56 → OBSVTOIN 16:56
PROVIDERS: ADMIT Student in an Organized Health Care Education/Training Program; ATTEND Student in an Organized Health Care Education/Training Program
PROC: 2Y41X5Z Packing of Nasal Region using Packing Material (ICD-10-PCS; 2019-07-19)
PROC: 4A023N7 Measurement of Cardiac Sampling and Pressure, Left Heart, Percutaneous Approach (ICD-10-PCS; principal; 2019-07-21)
PROC: B2111ZZ Fluoroscopy of Multiple Coronary Arteries using Low Osmolar Contrast (ICD-10-PCS; 2019-07-21)
PROC: B2131ZZ Fluoroscopy of Multiple Coronary Artery Bypass Grafts using Low Osmolar Contrast (ICD-10-PCS; 2019-07-21)
PROC: B2181ZZ Fluoroscopy of Left Internal Mammary Bypass Graft using Low Osmolar Contrast (ICD-10-PCS; 2019-07-21)
DX: R07.89 Other chest pain (principal); I25.110 Atherosclerotic heart disease of native coronary artery with unstable angina pectoris; E87.1 Hypo-osmolality and hyponatremia; N17.9 Acute kidney failure, unspecified; I50.30 Unspecified diastolic (congestive) heart failure; I13.0 Hypertensive heart and chronic kidney disease with heart failure and stage 1 through stage 4 chronic kidney disease, or unspecified chronic kidney disease; R04.0 Epistaxis; E78.5 Hyperlipidemia, unspecified; M10.9 Gout, unspecified; D64.9 Anemia, unspecified; N18.9 Chronic kidney disease, unspecified; E11.22 Type 2 diabetes mellitus with diabetic chronic kidney disease; I45.10 Unspecified right bundle-branch block; I35.0 Nonrheumatic aortic (valve) stenosis; N18.3 Chronic kidney disease, stage 3 (moderate); E11.51 Type 2 diabetes mellitus with diabetic peripheral angiopathy without gangrene; D50.0 Iron deficiency anemia secondary to blood loss (chronic); E86.1 Hypovolemia; Z95.1 Presence of aortocoronary bypass graft; Z79.899 Other long term (current) drug therapy; Z79.82 Long term (current) use of aspirin; Z79.84 Long term (current) use of oral hypoglycemic drugs; E86.0 Dehydration; E78.00 Pure hypercholesterolemia, unspecified
CPT/HCPCS: 36415; 36416; 71045; 76942; 80048; 80061; 83036; 83930; 83935; 84300; 84443; 84484; 85014; 85018; 85025; 93005; 93306; 93455; 94760; C1769; J1644; J1940; J2916; J3490

== ENCOUNTER 2021-04-04 10:44 | Outpatient (CLI) | payer MEDICARE ==
[2021-04-04 12:18] LABS: #Eosinphils 0.4 10x3/uL (0.0-0.5); #Monocytes 0.9 10x3/uL (0.0-1.1); %Basophils 0.5 % (0.0-2.0); %Eosinophils 4.8 % (0.0-6.0); %Lymphocytes 12.6 % (18.0-47.0); %Monocytes 10.5 % (0.0-10.0); %Neutrophils 70.9 % (40.0-75.0); ALT (SGPT) 10 U/L (8-55); AST (SGOT) 17 U/L (5-34); Albumin 4.2 g/dL (3.4-4.8); Alkaline Phosphatase 102 U/L (40-110); Anion Gap 15 mmol/L (10-20); BUN (Urea Nitrogen) 47 mg/dL (8.4-25.7); Bilirubin, Total 0.5 mg/dL (0.2-1.2); Calc. Creatinine Clearance 0 mL/min (70-130); Calcium 9.1 mg/dL (7.8-10.44); Carbon Dioxide 26 mmol/L (23-31); Chloride 94 mmol/L (98-107); Globulin 2.3 g/dL (2.4-3.5); Glucose 124 mg/dL (83-110); Mean Corpuscular HGB CONC 32.1 g/dL (32.0-36.0); Mean Corpuscular Volume 84.1 fl (81.2-95.1); Mean Platelet Volume 8.7 fl (7.4-10.4); Platelet Count 328 10x3/uL (150-450); Potassium 5.1 mmol/L (3.5-5.1); Protein, Total 6.5 g/dL (5.8-8.1); RBC Distribution Width 15.1 % (11.5-14.5); Red Blood Cell (RBC) Count 3.71 10x6/uL (4.32-5.72); Sodium 130 mmol/L (136-145); White Blood Cell (WBC) Count 8.5 10x3/uL (3.5-10.5)
[2021-04-05 12:54] LABS: SARS-CoV-2 PCR by NAA Not Detected (NotDetected)
== END 2021-04-04 10:45 | disposition home or self-care (01) ==
LOC: LABBT 10:44
PROVIDERS: ATTEND Otolaryngology Otolaryngic Allergy
DX: Z01.812 Encounter for preprocedural laboratory examination (principal); I35.0 Nonrheumatic aortic (valve) stenosis; Z20.822 Contact with and (suspected) exposure to COVID-19
CPT/HCPCS: 80053; 85025; U0003; U0005

== ENCOUNTER 2021-04-07 05:38 | Day surgery (SDC) | payer MEDICARE ==
[2021-04-04 08:58] VITALS: BMI 25.8
[2021-04-07] MEDS ORDERED: Lidocaine 1% (PF) 30 ML VIAL ONE (11:09)
[2021-04-07] MEDS ORDERED: Midazolam HCl 2 mg/2 ml Vial ONE (11:42)
[2021-04-07] MEDS ORDERED: Fentanyl 100 MCG/2 ML VIAL ONE (11:42)
[2021-04-07] MEDS ORDERED: Iopamidol 370 76% 100 ML VIAL ONE (12:17)
== END 2021-04-07 18:20 | disposition home or self-care (01) ==
LOC: CCL 05:38
PROVIDERS: ATTEND Internal Medicine Cardiovascular Disease
PROC: 4A023N8 Measurement of Cardiac Sampling and Pressure, Bilateral, Percutaneous Approach (ICD-10-PCS; principal; 2021-04-07)
PROC: B2111ZZ Fluoroscopy of Multiple Coronary Arteries using Low Osmolar Contrast (ICD-10-PCS; 2021-04-07)
PROC: B2181ZZ Fluoroscopy of Left Internal Mammary Bypass Graft using Low Osmolar Contrast (ICD-10-PCS; 2021-04-07)
PROC: B2121ZZ Fluoroscopy of Single Coronary Artery Bypass Graft using Low Osmolar Contrast (ICD-10-PCS; 2021-04-07)
DX: I35.0 Nonrheumatic aortic (valve) stenosis (principal); I25.10 Atherosclerotic heart disease of native coronary artery without angina pectoris; T82.858A Stenosis of other vascular prosthetic devices, implants and grafts, initial encounter; I25.82 Chronic total occlusion of coronary artery; I11.9 Hypertensive heart disease without heart failure; E78.00 Pure hypercholesterolemia, unspecified; I45.10 Unspecified right bundle-branch block; E87.1 Hypo-osmolality and hyponatremia; N28.9 Disorder of kidney and ureter, unspecified; Z79.82 Long term (current) use of aspirin; Z79.84 Long term (current) use of oral hypoglycemic drugs; Z79.899 Other long term (current) drug therapy; Z95.1 Presence of aortocoronary bypass graft
CPT/HCPCS: 93457; 93460; 93567; J2001; J2250; J3010; Q9967